=== PATIENT | female | born 1960 | race American Indian/Alaskan Native ===

== ENCOUNTER 2020-03-29 20:47 | Emergency (ER) | payer SELFPAY ==
--- NOTE | 2020-03-29 21:21 | Event Note ---
ED Screening Note ED Screening Note: RUQ abd pain radiates to the back states it feels like a burning sensation never had before no n/v/d This initial assessment/diagnostic orders/clinical plan/treatment(s) is/are subject to change based on patients health status, clinical progression and re- assessment by fellow clinical providers in the ED. Further treatment and workup at subsequent clinical providers discretion. Patient/guardian urged not to elope from the ED as their condition may be serious if not clinically assessed and managed. Initial orders include: labs, UA, RUQ US
[2020-03-29 22:12] LABS: Alanine Aminotransferase 17 units/L (7-56); BUN/Creatinine Ratio 18; Blood Urea Nitrogen 16 mg/dL (7-17); Calcium 9.7 mg/dL (8.4-10.2); Hemolysis Index 8
--- NOTE | 2020-03-29 22:19 | Ultrasound Report ---
ULTRASOUND ABDOMEN, LIMITED (RIGHT UPPER QUADRANT) INDICATION: RUQ radiates to the back. COMPARISON: None available. FINDINGS: Pancreas: Visualized portion shows no significant abnormality. Liver: Moderate increased echotexture characteristic for steatosis Gallbladder: Normal. Bile ducts: Normal. Common Bile Duct measures 3 mm. Free fluid: None. Additional Findings: None. IMPRESSION: 1. Moderate hepatic steatosis 2. No acute sonographic abnormality of the right upper quadrant. Signer Name: Kirit Fink MD Signed: 03/29/2020 10:15 PM Workstation Name: [id number]
[2020-03-29 22:27] LABS: Albumin 4.3 g/dL (3.9-5)
[2020-03-29] MEDS ORDERED: ONDANSETRON 4 MG/2 ML INJ IV ONE (22:36)
[2020-03-29] MEDS ORDERED: FAMOTIDINE 20 MG/2 ML INJ IV ONE (22:36)
[2020-03-29] MEDS ORDERED: ALUM-MAG HYDROXIDE-SIMETHICONE 200-200-20MG/5ML ORAL LIQD 30 ML PO ONE (22:36)
[2020-03-29] MEDS ORDERED: DICYCLOMINE 20 MG TAB PO ONE (22:36)
[2020-03-29] MEDS ORDERED: LIDOCAINE VISCOUS 2% 15 ML ORAL LIQD PO ONE (22:36)
[2020-03-29 22:38] LABS: Hematocrit 40.8 % (30.3-42.9); Hemoglobin 13.5 gm/dl (10.1-14.3); Mean Corpuscular HGB Conc 33 % (30-34); Mean Corpuscular Volume 84 fl (79-97); Platelet Count 307 K/mm3 (140-440); Red Blood Count 4.85 M/mm3 (3.65-5.03); Red Cell Distribution Width 16.7 % (13.2-15.2)
[2020-03-29 22:47] LABS: Bilirubin,Urine NEG (Negative); Blood,Urine SM (Negative); Color,Urine Colorless (Yellow); Mucus,Urine FEW /HPF; Protein,Urine <15 mg/dL mg/dL (Negative); Urobilinogen,Urine < 2.0 mg/dL (<2.0); WBC,Urine < 1.0 /HPF (0.0-6.0)
[2020-03-29 22:48] LABS: Basophils % (Auto) 0.5 % (0.0-1.8); Eosinophils # (Auto) 0.1 K/mm3 (0.0-0.4); Eosinophils % (Auto) 1.8 % (0.0-4.3); Lymphocytes # (Auto) 2.7 K/mm3 (1.2-5.4); Lymphocytes % (Auto) 38.6 % (13.4-35.0); Monocytes # (Auto) 0.4 K/mm3 (0.0-0.8); Monocytes % (Auto) 6.4 % (0.0-7.3)
--- NOTE | 2020-03-29 23:52 | Emergency Department Report ---
ED Abdominal Pain HPI - General Chief Complaint: Abdominal Pain Stated Complaint: RIGHT SIDE/BACK PAIN Time Seen by Provider: 03/29/20 21:18 Source: patient Mode of arrival: Ambulatory Limitations: No Limitations - History of Present Illness Initial Comments: Patient is a 59-year-old -[place] female with a history of hypertension who presents to the ED with acute onset persistent upper abdominal pain that radiates to the right flank for the last 6 days. Patient also complains of intermittent nausea the pain usually gets worse with food especially spicy foods. Patient states that in the last 24 hours, the pain has been worse and that it is burning and achy. Patient denies fever, chills, shortness of breath, cough, chest pain, diarrhea, vomiting, dysuria, urinary frequency and urgency, hematuria, vaginal bleeding, vaginal discharge, traumatic injury or heavy lifting, headache, palpitations, syncope or hemoptysis. MD Complaint: abdominal pain (epigastric pain radiating to right flank) -: Sudden, days(s) (6) Location: LUQ, RUQ, epigastric, R flank Radiation: LUQ, RUQ, epigastric, R flank, back Migration to: LUQ, RUQ, epigastric, R flank Severity: severe Severity scale (0 -10): 7 Quality: cramping, sharp Consistency: constant Improves With: nothing Worsens With: eating Associated Symptoms: denies other symptoms, nausea, anorexia. denies: vomiting, diarrhea, fever, chills, constipation, dysuria, hematemesis, hematochezia, richard toy, hematuria, syncope, other - Related Data Previous Rx's Medication Instructions Recorded Last Taken Type Diphenoxylate HCl/Atropine 1 each PO PKCONSULT #15 tablet 06/21/14 Unknown Rx [Lomotil 2.5-0.025 mg Tablet] Ondansetron [Zofran] 4 mg PO Q6HR PRN #15 tablet 06/21/14 Unknown Rx Sulfamethoxazole/Trimethoprim 1 each PO BID #6 tablet 06/21/14 Unknown Rx [Bactrim Ds] Ibuprofen [Motrin 800 MG tab] 800 mg PO TID PRN #30 tablet 10/04/14 Unknown Rx traMADoL [Ultram 50 MG tab] 50 mg PO Q4HR PRN #20 tablet 12/05/14 Unknown Rx Dicyclomine [Bentyl] 20 mg PO Q6H PRN #30 tablet 03/30/20 Unknown Rx Famotidine [Pepcid] 20 mg PO Q12H #60 tablet 03/30/20 Unknown Rx Ondansetron [Zofran Odt] 4 mg PO Q6HR PRN #15 tab.rapdis 03/30/20 Unknown Rx Allergies Allergy/AdvReac Type Severity Reaction Status Date / Time No Known Allergies Allergy Unverified 06/21/14 12:45 ED Review of Systems ROS: Stated complaint: RIGHT SIDE/BACK PAIN Other details as noted in HPI Constitutional: denies: chills, fever Eyes: denies: eye pain, eye discharge, vision change ENT: denies: ear pain, throat pain Respiratory: denies: cough, shortness of breath, wheezing Cardiovascular: denies: chest pain, palpitations Endocrine: no symptoms reported Gastrointestinal: abdominal pain, nausea. denies: diarrhea Genitourinary: denies: urgency, dysuria, discharge Musculoskeletal: denies: back pain, joint swelling, arthralgia Skin: denies: rash, lesions Neurological: denies: headache, weakness, paresthesias Psychiatric: denies: anxiety, depression Hematological/Lymphatic: denies: easy bleeding, easy bruising ED Past Medical Hx - Past Medical History Previous Medical History?: Yes Hx Hypertension: Yes - Surgical History Past Surgical History?: No - Social History Smoking Status: Never Smoker Substance Use Type: None - Medications Home Medications: Home Medications Medication Instructions Recorded Confirmed Last Taken Type Diphenoxylate HCl/Atropine 1 each PO PKCONSULT #15 tablet 06/21/14 Unknown Rx [Lomotil 2.5-0.025 mg Tablet] Ondansetron [Zofran] 4 mg PO Q6HR PRN #15 tablet 06/21/14 Unknown Rx Sulfamethoxazole/Trimethoprim 1 each PO BID #6 tablet 06/21/14 Unknown Rx [Bactrim Ds] Ibuprofen [Motrin 800 MG tab] 800 mg PO TID PRN #30 tablet 10/04/14 Unknown Rx traMADoL [Ultram 50 MG tab] 50 mg PO Q4HR PRN #20 tablet 12/05/14 Unknown Rx Dicyclomine [Bentyl] 20 mg PO Q6H PRN #30 tablet 03/30/20 Unknown Rx Famotidine [Pepcid] 20 mg PO Q12H #60 tablet 03/30/20 Unknown Rx Ondansetron [Zofran Odt] 4 mg PO Q6HR PRN #15 tab.rapdis 03/30/20 Unknown Rx ED Physical Exam - General Limitations: No Limitations General appearance: alert, in no apparent distress - Head Head exam: Present: atraumatic, normocephalic, normal inspection - Eye Eye exam: Present: normal appearance, PERRL, EOMI Pupils: Present: normal accommodation - ENT ENT exam: Present: normal exam, normal orophraynx, mucous membranes moist, TM's normal bilaterally, normal external ear exam - Neck Neck exam: Present: normal inspection, full ROM - Respiratory Respiratory exam: Present: normal lung sounds bilaterally. Absent: respiratory distress, wheezes, rales, rhonchi, chest wall tenderness, accessory muscle use, decreased breath sounds, prolonged expiratory - Cardiovascular Cardiovascular Exam: Present: regular rate, normal rhythm, normal heart sounds. Absent: systolic murmur, diastolic murmur, rubs, gallop - GI/Abdominal GI/Abdominal exam: Present: soft, tenderness (Epigastric, LUQ, RUQ and Right flank tenderness), normal bowel sounds. Absent: guarding, rebound, hyperactive bowel sounds, hypoactive bowel sounds, organomegaly - Extremities Exam Extremities exam: Present: normal inspection, full ROM, normal capillary refill - Back Exam Back exam: Present: normal inspection, full ROM. Absent: CVA tenderness (L), muscle spasm, paraspinal tenderness, vertebral tenderness - Neurological Exam Neurological exam: Present: alert, oriented X3, CN II-XII intact, normal gait, reflexes normal - Psychiatric Psychiatric exam: Present: normal affect, normal mood - Skin Skin exam: Present: warm, dry, intact, normal color. Absent: rash ED Course Vital Signs 03/29/20 21:09 Temperature 98.1 F Pulse Rate 77 Respiratory 18 Rate Blood Pressure 175/93 O2 Sat by Pulse 99 Oximetry ED Medical Decision Making - Lab Data Result diagrams: 03/29/20 21:23 03/29/20 21:23 - Radiology Data Radiology results: report reviewed, image reviewed Findings [facility] [address] [place] [address] Ultrasound Report Signed Patient: MEGAN KOWALSKI MR#: [id number] 15 : 1960 Acct:[id number] Age/Sex: 59 / F ADM Date: 03/29/20 Loc: ED Attending Dr: Ordering Physician: ROGELIO RESENDIZ Date of Service: 03/29/20 Procedure(s): US abdomen limited Accession Number(s): [id number] cc: ROGELIO RESENDIZ ULTRASOUND ABDOMEN, LIMITED (RIGHT UPPER QUADRANT) INDICATION: RUQ radiates to the back. COMPARISON: None available. FINDINGS: Pancreas: Visualized portion shows no significant abnormality. Liver: Moderate increased echotexture characteristic for steatosis Gallbladder: Normal. Bile ducts: Normal. Common Bile Duct measures 3 mm. Free fluid: None. Additional Findings: None. IMPRESSION: 1. Moderate hepatic steatosis 2. No acute sonographic abnormality of the right upper quadrant. Signer Name: Kirit Fink MD Signed: 03/29/2020 10:15 PM Workstation Name: [id number] Transcribed By: TL Dictated By: Kirit Fink MD Electronically Authenticated By: Kirit Fink MD Signed Date/Time: 03/29/202214 DD/ 12 TD/TT: Findings [facility] [address] [place] [address] Cat Scan Report Signed Patient: MEGAN KOWALSKI MR#: [id number] [birth year] : 1960 Acct:[id number] Age/Sex: 59 / F ADM Date: 03/29/20 Loc: ED Attending Dr: Ordering Physician: ROGELIO PEPPER Date of Service: 03/29/20 Procedure(s): CT abdomen pelvis w con Accession Number(s): [id number] cc: ROGELIO PEPPER CT ABDOMEN AND PELVIS WITH IV CONTRAST INDICATION: Pt complains of L.U.Q., R.U.Q., epigastric abd pain, Mostly to RT. COMPARISON: None available. TECHNIQUE: Axial CT images were obtained through the abdomen and pelvis after 100 mL IV contrast. All CT scans at this location are performed using CT dose reduction for ALARA by means of automated exposure control. FINDINGS -- ABDOMEN: Lung Bases: No acute abnormality. Liver: Normal. Gallbladder: Normal. Bile Ducts: Normal. Pancreas: Normal. Spleen: Small hypodensity possibly related to hemangioma.. Adrenals: Normal. Right Kidney and Proximal Ureter: Normal. Left Kidney and Proximal Ureter: Several fairly complex renal cysts largest of w hich measures 7 cm in length with the lower pole of left kidney... Stomach and Bowel: Normal. Lymph Nodes: No significant adenopathy. Aorta: No significant abnormality. IVC: Normal. Additional Findings: None. FINDINGS -- PELVIS: Urinary Bladder and Distal Ureters: Normal. Reproductive Organs: Enlarged uterus possibly with underlying fibroids. Appendix: Normal. Bowel: No acute abnormality. Free Fluid: None. Lymph Nodes: No significant adenopathy. Additional Findings: None. Skeletal System: No acute abnormality. IMPRESSION: 1. No acute process in the abdomen or pelvis. Signer Name: Jameel Sanford MD Signed: 03/30/2020 2:13 AM Workstation Name: [id number] Transcribed By: Dictated By: Jameel Sanford MD Electronically Authenticated By: Jameel Sanford MD Signed Date/Time: 03/30/20212 DD/ 8 TD/TT: - Medical Decision Making This is a 59-year-old -[place] female with a history of hypertension who presents to the ED with acute onset persistent upper abdominal pain that radiates to the right flank for the last 6 days. Patient also complains of intermittent nausea the pain usually gets worse with food especially spicy foods. Patient states that in the last 24 hours, the pain has been worse and that it is burning and achy. In the ED, patient is alert and oriented x3 and is not in distress. Lab test results were reviewed and are all nonactionable. Gallbladder ultrasound showed normal gallbladder with normal bowel bladder renal thickness and no pericholecystic fluid. Abdomen pelvis CT scan with contrast showed no acute abnormalities. Patient was treated for pain in the ED and also given antacids and antiemetics. EKG shows normal sinus rhythm with a ventricular rate of [address] or T wave abnormalities. On reevaluation, patient pain resolved with medication. Patient was discharged home on medications and advised to follow-up with her primary care physician in 5 to 7 days for reevaluation or return to the ED immediately if symptoms get worse. - Differential Diagnosis GERD; Gastritis; Gastroenteritis; Kidney stones; Gallstones Critical care attestation.: If time is entered above; I have spent that time in minutes in the direct care of this critically ill patient, excluding procedure time. ED Disposition Clinical Impression: Abdominal pain in female, Nausea and vomiting in adult patient GERD (gastroesophageal reflux disease) Qualifiers: Esophagitis presence: without esophagitis Qualified Code(s): K21.9 - Gastro- esophageal reflux disease without esophagitis Disposition: TO HOME OR SELFCARE Is pt being admited?: No Does the pt Need Aspirin: No Condition: Stable Instructions: Abdominal Pain (ED), Heartburn, [id number], Nausea and Vomiting, Adult, Abdominal Pain, Adult, [id number], Gastroesophageal Reflux Disease, Adult Additional Instructions: All lab test results nonactionable. Right upper quadrant ultrasound showed a n ormal gallbladder with no sign of infections. Abdomen pelvis CT scan with contrast showed no acute abnormalities. There is a take medication with is needed for pain and follow-up with your primary care physician in 5 to 7 days for reevaluation or return to the ED immediately if symptoms get worse. Prescriptions: Dicyclomine [Bentyl] 20 mg PO Q6H PRN #30 tablet PRN Reason: Abdominal pain Famotidine [Pepcid] 20 mg PO Q12H #60 tablet Ondansetron [Zofran Odt] 4 mg PO Q6HR PRN #15 tab.rapdis PRN Reason: Nausea Referrals: [facility] [Provider Group] - 7-10 days Time of Disposition: 02:36 Print Language: ANDORRAN
--- NOTE | 2020-03-30 02:17 | Cat Scan Report ---
CT ABDOMEN AND PELVIS WITH IV CONTRAST INDICATION: Pt complains of L.U.Q., R.U.Q., epigastric abd pain, Mostly to RT. COMPARISON: None available. TECHNIQUE: Axial CT images were obtained through the abdomen and pelvis after 100 mL IV contrast. All CT scans a t this location are performed using CT dose reduction for ALARA by means of automated exposure contro l. FINDINGS -- ABDOMEN: Lung Bases: No acute abnormality. Liver: Normal. Gallbladder: Normal. Bile Ducts: Normal. Pancreas: Normal. Spleen: Small hypodensity possibly related to hemangioma.. Adrenals: Normal. Right Kidney and Proximal Ureter: Normal. Left Kidney and Proximal Ureter: Several fairly complex renal cysts largest of which measures 7 cm in length with the lower pole of left kidney... Stomach and Bowel: Normal. Lymph Nodes: No significant adenopathy. Aorta: No significant abnormality. IVC: Normal. Additional Findings: None. FINDINGS -- PELVIS: Urinary Bladder and Distal Ureters: Normal. Reproductive Organs: Enlarged uterus possibly with underlying fibroids. Appendix: Normal. Bowel: No acute abnormality. Free Fluid: None. Lymph Nodes: No significant adenopathy. Additional Findings: None. Skeletal System: No acute abnormality. IMPRESSION: 1. No acute process in the abdomen or pelvis. Signer Name: Jameel Sanford MD Signed: 03/30/2020 2:13 AM Workstation Name: [id number]
[2020-03-30 03:26] VITALS: BP 139/78
== END 2020-03-30 03:00 | disposition home or self-care (01) ==
LOC: ED 20:47
DX: K21.9 Gastro-esophageal reflux disease without esophagitis (principal); R11.2 Nausea with vomiting, unspecified; R10.10 Upper abdominal pain, unspecified; I10 Essential (primary) hypertension; Z79.899 Other long term (current) drug therapy
CPT/HCPCS: 36415; 74177; 76705; 80053; 81001; 83690; 84484; 85025; 93005; 96374; 96375; 99284; J2405; Q9967

== ENCOUNTER 2020-04-22 19:24 | Emergency (ER) | payer SELFPAY ==
[2020-04-22 20:17] LABS: Basophils # (Auto) 0.1 K/mm3 (0.0-0.1); Basophils % (Auto) 0.9 % (0.0-1.8); Eosinophils # (Auto) 0.1 K/mm3 (0.0-0.4); Hematocrit 40.2 % (30.3-42.9); Hemoglobin 13.5 gm/dl (10.1-14.3); Lymphocytes # (Auto) 2.6 K/mm3 (1.2-5.4); Lymphocytes % (Auto) 33.8 % (13.4-35.0); Mean Corpuscular HGB Conc 34 % (30-34); Mean Corpuscular Volume 84 fl (79-97); Monocytes # (Auto) 0.6 K/mm3 (0.0-0.8); Monocytes % (Auto) 7.3 % (0.0-7.3); Platelet Count 307 K/mm3 (140-440); Red Cell Distribution Width 16.6 % (13.2-15.2)
[2020-04-22 20:35] LABS: BUN/Creatinine Ratio 16; Blood Urea Nitrogen 14 mg/dL (7-17); Calcium 10.4 mg/dL (8.4-10.2); Hemolysis Index 3
[2020-04-23] MEDS ORDERED: cloNIDine 0.1 MG TAB PO ONE (04:16)
[2020-04-23] MEDS ORDERED: MECLIZINE 25 MG TAB PO ONE (04:16)
--- NOTE | 2020-04-23 04:21 | Emergency Department Report ---
ED Dizziness HPI - General Chief Complaint: Dizziness Stated Complaint: DIZZINESS Time Seen by Provider: 04/23/20 04:04 Source: patient Mode of arrival: Ambulatory Limitations: No Limitations - History of Present Illness Initial Comments: Patient is 59 years old female with history of hypertension. Patient presented to the ER complaining of dizziness that started all of a sudden last night when she was changing position from laying down to standing up and when she turned her head. Patient stated that symptoms only happen when she change position. Patient denied any head injury. No headache, focal weakness numbness or tingling sensation. Patient denied any chest pain or shortness of breath. MD Complaint: dizziness -: Last night Timing: sudden onset Description: sense of movement, "room spinning" History of Same: Yes History of Trauma: No Severity: moderate Improves With: remaining still - Related Data Previous Rx's Medication Instructions Recorded Last Taken Type Diphenoxylate HCl/Atropine 1 each PO PKCONSULT #15 tablet 06/21/14 Unknown Rx [Lomotil 2.5-0.025 mg Tablet] Ondansetron [Zofran] 4 mg PO Q6HR PRN #15 tablet 06/21/14 Unknown Rx Sulfamethoxazole/Trimethoprim 1 each PO BID #6 tablet 06/21/14 Unknown Rx [Bactrim Ds] Ibuprofen [Motrin 800 MG tab] 800 mg PO TID PRN #30 tablet 10/04/14 Unknown Rx traMADoL [Ultram 50 MG tab] 50 mg PO Q4HR PRN #20 tablet 12/05/14 Unknown Rx Dicyclomine [Bentyl] 20 mg PO Q6H PRN #30 tablet 03/30/20 Unknown Rx Famotidine [Pepcid] 20 mg PO Q12H #60 tablet 03/30/20 Unknown Rx Ondansetron [Zofran Odt] 4 mg PO Q6HR PRN #15 tab.rapdis 03/30/20 Unknown Rx Allergies Allergy/AdvReac Type Severity Reaction Status Date / Time No Known Allergies Allergy Unverified 06/21/14 12:45 ED Review of Systems ROS: Stated complaint: DIZZINESS Other details as noted in HPI Comment: All other systems reviewed and negative Constitutional: denies: chills, fever Respiratory: denies: cough, shortness of breath, SOB with exertion, SOB at rest, wheezing Cardiovascular: denies: chest pain, palpitations Gastrointestinal: denies: abdominal pain, nausea, vomiting Musculoskeletal: denies: back pain Neurological: denies: headache ED Past Medical Hx - Past Medical History Previous Medical History?: Yes Hx Hypertension: Yes - Surgical History Past Surgical History?: No - Social History Smoking Status: Never Smoker Substance Use Type: None - Medications Home Medications: Home Medications Medication Instructions Recorded Confirmed Last Taken Type Diphenoxylate HCl/Atropine 1 each PO PKCONSULT #15 tablet 06/21/14 Unknown Rx [Lomotil 2.5-0.025 mg Tablet] Ondansetron [Zofran] 4 mg PO Q6HR PRN #15 tablet 06/21/14 Unknown Rx Sulfamethoxazole/Trimethoprim 1 each PO BID #6 tablet 06/21/14 Unknown Rx [Bactrim Ds] Ibuprofen [Motrin 800 MG tab] 800 mg PO TID PRN #30 tablet 10/04/14 Unknown Rx traMADoL [Ultram 50 MG tab] 50 mg PO Q4HR PRN #20 tablet 12/05/14 Unknown Rx Dicyclomine [Bentyl] 20 mg PO Q6H PRN #30 tablet 03/30/20 Unknown Rx Famotidine [Pepcid] 20 mg PO Q12H #60 tablet 03/30/20 Unknown Rx Ondansetron [Zofran Odt] 4 mg PO Q6HR PRN #15 tab.rapdis 03/30/20 Unknown Rx ED Physical Exam - General Limitations: No Limitations General appearance: alert, in no apparent distress - Head Head exam: Present: atraumatic, normocephalic, normal inspection - Eye Eye exam: Present: normal appearance, PERRL - ENT ENT exam: Present: normal exam, normal orophraynx, mucous membranes moist - Neck Neck exam: Present: normal inspection, full ROM. Absent: tenderness, meningismus - Respiratory Respiratory exam: Present: normal lung sounds bilaterally - Cardiovascular Cardiovascular Exam: Present: regular rate, normal rhythm, normal heart sounds - GI/Abdominal GI/Abdominal exam: Present: normal bowel sounds. Absent: soft, distended, tenderness, guarding, rebound, rigid, organomegaly, mass, bruit, pulsatile mass, hernia - Extremities Exam Extremities exam: Present: normal inspection, full ROM, normal capillary refill. Absent: pedal edema, calf tenderness - Back Exam Back exam: Present: normal inspection, full ROM. Absent: CVA tenderness (R), CVA tenderness (L) - Neurological Exam Neurological exam: Present: alert, oriented X3, CN II-XII intact, normal gait, reflexes normal. Absent: abnormal gait, motor sensory deficit - Psychiatric Psychiatric exam: Present: normal mood - Skin Skin exam: Present: warm, intact, normal color ED Course Vital Signs 04/22/20 04/23/20 04/23/20 19:47 04:05 04:16 Temperature 98.1 F Pulse Rate 75 65 Respiratory 18 7 L Rate Blood Pressure 169/92 192/91 O2 Sat by Pulse 97 97 99 Oximetry 04/23/20 04/23/20 04/23/20 04:24 04:30 04:52 Temperature Pulse Rate 67 59 L Respiratory 13 Rate Blood Pressure 171/97 171/97 166/89 O2 Sat by Pulse 96 97 Oximetry 04/23/20 04/23/20 04/23/20 05:00 05:16 05:30 Temperature Pulse Rate Respiratory Rate Blood Pressure 166/89 163/89 166/89 O2 Sat by Pulse 98 97 95 Oximetry ED Medical Decision Making - Lab Data Result diagrams: 04/22/20 20:00 04/22/20 20:00 - EKG Data -: EKG Interpreted by Oh EKG shows normal: sinus rhythm Rate: normal - EKG Data Interpretation: no acute changes - Radiology Data Radiology results: report reviewed - Medical Decision Making Patient is 59 years old female with history of hypertension. Patient presented to the ER complaining of dizziness that started all of a sudden last night when she was changing position from laying down to standing up and when she turned her head. Patient stated that symptoms only happen when she change position. Patient denied any head injury. No headache, focal weakness numbness or tingling sensation. Patient denied any chest pain or shortness of breath. Patient received meclizine and clonidine. Patient stated that she is feeling much better. Labs reviewed and is unremarkable. CT brain is negative for acute finding. Patient given prescription for meclizine and advised to follow-up with her primary doctor in the next 2 to 3 days and to return to the ER if she develop any new symptoms. Critical care attestation.: If time is entered above; I have spent that time in minutes in the direct care of this critically ill patient, excluding procedure time. ED Disposition Clinical Impression: Dizziness, Benign positional vertigo, Malignant hypertension Disposition: DC-01 TO HOME OR SELFCARE Is pt being admited?: No Condition: Stable Instructions: Vertigo, [id number], Dizziness, Hypertension (ED), Hypertension, Adult, [id number] Referrals: ARETHA GRACE MD [Primary Care Provider] - 3-5 Days
[2020-04-23 05:14] VITALS: BP 166/89
--- NOTE | 2020-04-23 05:35 | Cat Scan Report ---
CT head without contrast INDICATION : Dizziness. TECHNIQUE: Axial imaging performed from the skull apex through the skull base without the use of con trast. All CT scans at this location are performed using CT dose reduction for ALARA by means of aut omated exposure control. COMPARISON: None FINDINGS: Parenchyma: No acute intracranial hemorrhage or parenchymal abnormality. Ventricles: Ventricles are normal in size and appear symmetric. Soft tissues: Soft tissues including the orbits appear normal. Bones: No acute osseous abnormality. Sinuses: Sinuses and mastoid air cells are clear. IMPRESSION: No acute abnormality. Signer Name: Oswald Melendrez MD Signed: 04/23/2020 5:31 AM Workstation Name: [id number]
== END 2020-04-23 07:00 | disposition home or self-care (01) ==
LOC: ED 19:24
DX: H81.10 Benign paroxysmal vertigo, unspecified ear (principal); I10 Essential (primary) hypertension; Z79.899 Other long term (current) drug therapy
CPT/HCPCS: 36415; 70450; 80048; 84484; 85025; 93005